=== PATIENT | female | born 1980 | race African-American/Black ===

== ENCOUNTER 2017-10-01 19:37 | Emergency (ER) | payer SELFPAY ==
[~2017-10-01] VITALS: Ht 170.2 cm; Wt 102.0 kg
[2017-10-01] MEDS ORDERED: HYDROCODONE/ACETAMINOPHEN 10/325MG TABLET PO ONE (20:30)
[2017-10-01 22:11] VITALS: BP 148/91
== END 2017-10-01 22:57 | disposition home or self-care (01) ==
LOC: ER 19:37
DX: S83.92XA Sprain of unspecified site of left knee, initial encounter (principal); S30.0XXA Contusion of lower back and pelvis, initial encounter; W01.0XXA Fall on same level from slipping, tripping and stumbling without subsequent striking against object, initial encounter; Y93.89 Activity, other specified; Y92.520 Airport as the place of occurrence of the external cause; I10 Essential (primary) hypertension; E11.9 Type 2 diabetes mellitus without complications; Z79.899 Other long term (current) drug therapy
CPT/HCPCS: 72170; 73562; 99284; L1830; Z7610